=== PATIENT | male | born 1960 | race Two or more races ===

== ENCOUNTER 2019-10-10 21:25 | Inpatient (IN) | payer MEDICAID ==
[~2019-10-10] VITALS: Ht 165.1 cm; Wt 86.7 kg
[2019-10-10 10:03] VITALS: BP 161/97
--- NOTE | 2019-10-10 21:30 | NUR ---
Dr. Disla at bedside for MSE
[2019-10-10] MEDS ORDERED: IV NORMAL SALINE 1000 ML BAG IV ONE (21:45)
--- NOTE | 2019-10-10 22:08 | NUR ---
Patient taken to CT scan
[2019-10-10 22:12] LABS: BASOPHILS % (AUTO) 0.3 % (0.0-2.0); EOSINOPHILS % (AUTO) 0.2 % (0.0-7.0); HEMATOCRIT 36.7 % (36.7-47.1); HEMOGLOBIN 11.9 g/dL (12.5-16.3); LYMPHOCYTES # (AUTO) 1.1 K/uL (20.0-40.0); LYMPHOCYTES % (AUTO) 9.7 % (20.5-51.5); MEAN CORPUSCULAR HEMOGLOBIN 25.8 uug (23.8-33.4); MEAN CORPUSCULAR HGB CONC 32 g/dL (32.5-36.3); MEAN CORPUSCULAR VOLUME 79.6 fL (73.0-96.2); MONOCYTES # (AUTO) 0.5 K/uL (2.0-10.0); MONOCYTES % (AUTO) 4.9 % (0.0-11.0); NEUTROPHILS # (AUTO) 9.6 K/uL (1.8-8.9); NEUTROPHILS % (AUTO) 84.9 % (38.5-71.5); PLATELET COUNT (AUTO) 289 K/uL (152-348); RED BLOOD CELL COUNT(AUTO) 4.61 MIL/uL (4.06-5.63); WHITE BLOOD COUNT (AUTO) 11.3 K/uL (3.6-10.2)
[2019-10-10 22:17] LABS: CREATININE 1.6 mg/dL (0.6-1.3)
[2019-10-10 22:22] LABS: BILIRUBIN,DIRECT 0.3 mg/dL (0.0-0.2); BILIRUBIN,TOTAL 0.6 mg/dL (0.2-1.0); TOTAL PROTEIN, SERUM 6.7 g/dL (6.4-8.2)
--- NOTE | 2019-10-10 22:23 | NUR ---
Patient back from CT scan
[2019-10-10 22:25] LABS: *BILIRUBIN,URIN 1+ (NEGATIVE); *BLOOD, URINE 2+ (NEGATIVE); *CLARITY,URINE CLEAR (CLEAR); *COLOR,URINE YELLOW (YELLOW); *KETONES,URINE 2+ (NEGATIVE); LEUKOCYTE ESTERASE ,URINE NEGATIVE (NEGATIVE); NITRITE, URINE NEGATIVE (NEGATIVE); UGLUCOSE NEGATIVE (NEGATIVE)
[2019-10-10] MEDS ORDERED: ACETAMINOPHEN 325 MG TABLET ONE (22:38)
[2019-10-10 22:41] LABS: WBC,URINE 0-3 /HPF (0-3)
[2019-10-10 22:42] LABS: BACTERIA,URINE FEW /HPF (NONE SEEN); SQUAMOUS EPITHELIAL CELL,UR FEW /HPF (NONE SEEN)
--- NOTE | 2019-10-10 22:49 | NUR ---
Pt. admitted to Tele , under care of Dr. Singh Belongs List completed
[2019-10-10] MEDS ORDERED: AZITHROMYCIN 500MG/ D5W 250ML IVPB **ER PYXIS ONLY IV ONE (22:54)
[2019-10-10] MEDS ORDERED: CEFTRIAXONE /D5W 50ML IVPB **ER PYXIS IV ONE (22:55)
[2019-10-10] MEDS ORDERED: CEFTRIAXONE 1 G in IV DEXTROSE 5% 100 ML IV ONE (23:00)
[2019-10-10] MEDS ORDERED: AZITHROMYCIN IV 500 MG in IV DEXTROSE 5% 250 ML IV ONE (23:00)
--- NOTE | 2019-10-10 23:24 | NUR ---
Rocephin IV done infusing. No ASE noted.
--- NOTE | 2019-10-10 23:24 | NUR ---
Report given to Mendy URIOSTEGUI
[2019-10-10] MEDS ORDERED: POTASSIUM CHLORIDE 20 MEQ TAB.PRT.SR ONE (23:34)
[2019-10-11 00:05] VITALS: BP 168/101
--- NOTE | 2019-10-11 00:05 | NUR ---
NEW ADMIT 8 PATIENT RECEIVED INTO CARE VIA WHEELCHAIR. PATIENT IS ALERT/ORIENTED X3 AND HAS NO COMPLAINTS OF PAIN OR DISCOMFORT AT THIS TIME. ALL PERTINENT ASSESSMENTS AND ORIENTATION TO UNIT COMPLETED. ALL SAFETY, FALL, AND ISOLATION PRECAUTIONS IMPLEMENTED. CALL LIGHT AND PERSONAL ITEMS ARE WITHIN REACH. WILL CONTINUE TO MONITOR AND ASSESS.
--- NOTE | 2019-10-11 00:14 | NUR ---
Azithromycin IV to finish infusing in telemetry. Mendy URIOSTEGUI aware
[2019-10-11] MEDS ORDERED: POTASSIUM CHLORIDE 20 MEQ TAB.PRT.SR PO ONE (00:15)
[2019-10-11] MEDS ORDERED: ENOXAPARIN SODIUM 40 MG/0.4 ML DISP.SYRIN SQ SCH (00:15)
[2019-10-11] MEDS ORDERED: ONDANSETRON 4 MG/2 ML VIAL IV PRN (00:15)
[2019-10-11] MEDS ORDERED: ALBUTEROL SULFATE 8 GM HFA.AER.AD IH PRN (00:15)
[2019-10-11] MEDS ORDERED: ALBUTEROL SULFATE 2.5 MG/ 0.5 ML NEBU NEB PRN (00:45)
[2019-10-11 03:45] VITALS: BP 178/111
--- NOTE | 2019-10-11 03:45 | NUR ---
GARY GIL NOTIFIED THIS NURSE OF ELEVATED BP FOR PT AT 178/111 HR 119. THIS NURSE NOTIFIED PLANT PROTECTION SUPERVISOR GUS MENDOZA WHO GAVE T.O. FOR HYDRALAZINE 25MG PO Q8H FOR SBP 150mm Hg. ORDER READ BACK AND CONFIRMED. Addendum: 10/11/19 at 0436 by BARRINGTON KATE RN GARY GIL ALSO NOTIFIED THIS NURSE THAT PATIENT HAS A TEMPERATURE OF 101F. THIS NURSE IMPLEMENTED COOLING MEASURES AND PROVIDED PATIENT PRESCRIBED PO TYLENOL 650MG. WILL CONTINUE TO MONITOR AND ASSESS VS.
[2019-10-11] MEDS: ACETAMINOPHEN 325 MG TABLET PO PRN ×3 (04:16→22:19)
[2019-10-11] MEDS: hydrALAZINE HCL 25 MG TABLET PO PRN ×2 (04:16→15:44)
--- NOTE | 2019-10-11 05:16 | NUR ---
PATIENT SLEPT INTERMITTENTLY THROUGHOUT NIGHT AFTER ADMISSION TO UNIT. PATIENT HAS HAD NO COMPLAINTS OF PAIN OR DISCOMFORT, BUT IS COMPLAINING OF COUGH AND HAS BEEN NOTED TO HAVE FEVER OF 101F AND ELEVATED BP/HR. PER PATIENT, HE WAS ONCE PRESCRIBED ATENOLOL 25MG FOR HIS BLOOD PRESSURE BUT STOPPED TAKING IT 3 MONTHS AGO. PRN HYDRALAZINE 25MG PO Q8H HAS BEEN PRESCRIBED BY GUS CASTILLO FOR ELEVATED SBP 150 mm Hg, HOWEVER, THIS NURSE RECOMMENDS AN ONGOING HYPERTENSIVE MEDICATION FOR CONTROL OF PATIENT'S ELEVATED SBP/DBP AND HR. ALL SAFETY, FALL, AND ISOLATION PRECAUTIONS REMAIN IN PLACE. CALL LIGHT AND PERSONAL ITEMS REMAIN WITHIN REACH.
[2019-10-11] MEDS: PANTOPRAZOLE SODIUM 40 MG TABLET.DR PO SCH (06:02)
[2019-10-11 06:13] LABS: BASOPHILS # (AUTO) 0.1 K/uL (0.0-8.0); BASOPHILS % (AUTO) 0.5 % (0.0-2.0); EOSINOPHILS # (AUTO) 0.1 K/uL (0.0-0.7); EOSINOPHILS % (AUTO) 0.6 % (0.0-7.0); HEMATOCRIT 38.5 % (36.7-47.1); HEMOGLOBIN 12.6 g/dL (12.5-16.3); LYMPHOCYTES % (AUTO) 7.3 % (20.5-51.5); MEAN CORPUSCULAR HEMOGLOBIN 25.9 uug (23.8-33.4); MEAN CORPUSCULAR HGB CONC 33 g/dL (32.5-36.3); MEAN CORPUSCULAR VOLUME 79.4 fL (73.0-96.2); MONOCYTES # (AUTO) 0.7 K/uL (2.0-10.0); MONOCYTES % (AUTO) 5.5 % (0.0-11.0); NEUTROPHILS # (AUTO) 11.3 K/uL (1.8-8.9); NEUTROPHILS % (AUTO) 86.1 % (38.5-71.5); PLATELET COUNT (AUTO) 327 K/uL (152-348); RED BLOOD CELL COUNT(AUTO) 4.84 MIL/uL (4.06-5.63); WHITE BLOOD COUNT (AUTO) 13.1 K/uL (3.6-10.2)
[2019-10-11 06:24] VITALS: BP 142/96
--- NOTE | 2019-10-11 06:26 | NUR ---
REEVALUATION OF VS REFLECTS BP 142/96 HR 109 T 99.4. WILL CONTINUE TO MONITOR AND ASSESS.
[2019-10-11 06:35] LABS: BILIRUBIN,TOTAL 0.6 mg/dL (0.2-1.0); CREATININE 1.5 mg/dL (0.6-1.3); MAGNESIUM 1.8 mg/dL (1.8-2.4); PHOSPHOROUS 2.6 mg/dL (2.5-4.9); POTASSIUM 3.1 mmol/L (3.5-5.1)
--- NOTE | 2019-10-11 08:00 | NUR ---
Patient in bed, awake, alert and verbally responsive. On Oxygen at 2L saturating 89-90%, placed patient on 3L via nasal canula, patient saturating 92-93%. No complain of SOB at this time. Kept clean and comfortable. All needs attended and met.
[2019-10-11] MEDS: ENOXAPARIN SODIUM 40 MG/0.4 ML DISP.SYRIN SQ SCH (08:29)
[2019-10-11] MEDS: POTASSIUM CHLORIDE 50 ML IV SCH ×3 (09:46→12:19)
[2019-10-11 11:26] VITALS: BP 162/106
[2019-10-11 15:30] VITALS: BP 172/115
--- NOTE | 2019-10-11 18:18 | NUR ---
Patient in bed, awake, alert and verbally responsive. On Oxygen at 3L via nasal canula saturating 94%. No complain of pain or discomfort. patient noted with Temperature 101.9F, gave tylenol 650mg, went down to 99.4F. still awaiting for covid 19 result. All needs attended and met. kept clean and comfortable. Will endorse to Oncoming Nurse.
--- NOTE | 2019-10-11 19:10 | NUR ---
Received pt in bed, awake. Pt denies any acute distress or pain at this time. Pt noted with temperature of 103.2, was given Tylenol 650mg at 1544H. Will provide cooling measures and reassess. Covid test result still pending. Pt is on 3L NC saturating at 96%. RFA IV is intact. Safety measures in place. Bed low and locked in position. Call light within reach, will continue with the plan of care.
[2019-10-11] MEDS: CEFTRIAXONE 1 G in IV DEXTROSE 5% 50 ML IV SCH (20:28)
[2019-10-11 20:35] VITALS: BP 177/108
[2019-10-11] MEDS: AZITHROMYCIN IV 500 MG in IV DEXTROSE 5% 250 ML IV SCH (21:17)
[2019-10-11] MEDS: MORPHINE SULFATE 2 MG/1 ML DISP.SYRIN IV PRN (21:17)
[2019-10-12 00:49] VITALS: BP 131/92
[2019-10-12 05:33] VITALS: BP 151/114
[2019-10-12] MEDS: ACETAMINOPHEN 325 MG TABLET PO PRN ×3 (05:57→20:32)
[2019-10-12] MEDS: hydrALAZINE HCL 25 MG TABLET PO PRN (05:57)
--- NOTE | 2019-10-12 06:47 | NUR ---
Pt slept intermittently through the night. Pt awake and denies any acute distress or pain at this time. Pts temperature is 101.1, Tylenol 650mg was given. Will reassess. BP was 151/114, PRN Hydralazine 25mg was given. Pt is ST 119 on tele monitor. Comfort care and needs attended. Safety measures in place. Call light within reach. Will endorse to the oncoming nurse accordingly.
[2019-10-12] MEDS: PANTOPRAZOLE SODIUM 40 MG TABLET.DR PO SCH (06:59)
[2019-10-12 07:43] LABS: BASOPHILS % (AUTO) 0.3 % (0.0-2.0); EOSINOPHILS # (AUTO) 0.2 K/uL (0.0-0.7); EOSINOPHILS % (AUTO) 1.3 % (0.0-7.0); HEMATOCRIT 36.6 % (36.7-47.1); LYMPHOCYTES # (AUTO) 1.1 K/uL (20.0-40.0); MEAN CORPUSCULAR HEMOGLOBIN 26.3 uug (23.8-33.4); MEAN CORPUSCULAR HGB CONC 33 g/dL (32.5-36.3); MEAN CORPUSCULAR VOLUME 80.4 fL (73.0-96.2); MONOCYTES # (AUTO) 0.6 K/uL (2.0-10.0); MONOCYTES % (AUTO) 4.7 % (0.0-11.0); NEUTROPHILS # (AUTO) 11.6 K/uL (1.8-8.9); NEUTROPHILS % (AUTO) 85.7 % (38.5-71.5); PLATELET COUNT (AUTO) 323 K/uL (152-348); RED BLOOD CELL COUNT(AUTO) 4.55 MIL/uL (4.06-5.63); WHITE BLOOD COUNT (AUTO) 13.5 K/uL (3.6-10.2)
[2019-10-12 07:45] LABS: CREATININE 1.1 mg/dL (0.6-1.3); POTASSIUM 3.1 mmol/L (3.5-5.1)
[2019-10-12 07:59] LABS: THYROID STIMULATING HORMONE 0.081 mIU/mL (0.358-3.740)
[2019-10-12 08:00] VITALS: BP 137/88
[2019-10-12 08:15] LABS: MAGNESIUM 1.7 mg/dL (1.8-2.4)
[2019-10-12] MEDS: ENOXAPARIN SODIUM 40 MG/0.4 ML DISP.SYRIN SQ SCH (08:15)
--- NOTE | 2019-10-12 08:53 | NUR ---
Received pt. AAOX4. vitals signs stable fever in the 100's see vital signs documentation. Hl RFA patent; no c/of pain.
[2019-10-12] MEDS ORDERED: POTASSIUM CHLORIDE 20 MEQ TAB.PRT.SR PO ONE (11:15)
[2019-10-12 11:30] VITALS: BP 133/91
[2019-10-12] MEDS: MAGNESIUM SULFATE/D5W 100 ML IV SCH ×2 (11:57→13:24)
[2019-10-12] MEDS: MORPHINE SULFATE 2 MG/1 ML DISP.SYRIN IV PRN (14:11)
[2019-10-12 16:00] VITALS: BP 156/93
--- NOTE | 2019-10-12 18:40 | NUR ---
Patient left resting AAOx4. on 3 liter NC saturation within desire limits, sbp wnl with no need of anti-hypertensive prn's. tolerating diet well with no n/v.
--- NOTE | 2019-10-12 19:00 | NUR ---
Received pt in bed, awake. Pt denies SOB/CP or any acute distress at this time. Pt's temperature is noted to be at 99.4, will give cooling measures and PRN Tylenol 650mg, will reassess. Pt is ST 105 on tele monitor. V/S stable, on 3L NC saturating at 97%. RFA 20 is intact. Safety measures in place. Call light within reach. Will continue with the plan of care.
[2019-10-12 20:00] VITALS: BP 140/88
[2019-10-12] MEDS: CEFTRIAXONE 1 G in IV DEXTROSE 5% 50 ML IV SCH (20:30)
[2019-10-12] MEDS: AZITHROMYCIN IV 500 MG in IV DEXTROSE 5% 250 ML IV SCH (21:49)
[2019-10-13 00:30] VITALS: BP 134/82
[2019-10-13 04:30] VITALS: BP 163/102
[2019-10-13] MEDS: ACETAMINOPHEN 325 MG TABLET PO PRN ×2 (05:14→17:49)
[2019-10-13] MEDS: hydrALAZINE HCL 25 MG TABLET PO PRN (05:15)
[2019-10-13] MEDS: PANTOPRAZOLE SODIUM 40 MG TABLET.DR PO SCH (06:17)
--- NOTE | 2019-10-13 06:32 | NUR ---
Pt slept intermittently through the night. Pt awake and denies any acute distress or pain. Pt temperature is noted to be at 100.7, Tylenol 650mg was given. ST 110 on tele monitor. BP is 163/102, PRN Hydralazine 25mg was given. Will reassess. Comfort care and needs attended. Fall precaution maintained. Safety measures in place. Call light within reach. Will endorse to the oncoming nurse accordingly.
--- NOTE | 2019-10-13 08:00 | NUR ---
Pt alert and oriented x 4. Educated pt on how to use IS. Pt able to return demonstrate proper use. Encouraged pt to us IS x10WA and discussed importance of exercise benefits with his lung. Pt agreeable Plan on using IS. Pt is in no acute distress. Pt states that his breathing better. No fever noted. Call light is within reach.
[2019-10-13 08:22] LABS: BASOPHILS % (AUTO) 0.3 % (0.0-2.0); EOSINOPHILS # (AUTO) 0.4 K/uL (0.0-0.7); EOSINOPHILS % (AUTO) 2.6 % (0.0-7.0); HEMATOCRIT 35.5 % (36.7-47.1); HEMOGLOBIN 11.5 g/dL (12.5-16.3); LYMPHOCYTES # (AUTO) 1.4 K/uL (20.0-40.0); LYMPHOCYTES % (AUTO) 10.7 % (20.5-51.5); MEAN CORPUSCULAR HEMOGLOBIN 26.1 uug (23.8-33.4); MEAN CORPUSCULAR HGB CONC 33 g/dL (32.5-36.3); MEAN CORPUSCULAR VOLUME 80.3 fL (73.0-96.2); MONOCYTES # (AUTO) 0.5 K/uL (2.0-10.0); MONOCYTES % (AUTO) 3.5 % (0.0-11.0); NEUTROPHILS % (AUTO) 82.9 % (38.5-71.5); PLATELET COUNT (AUTO) 354 K/uL (152-348); RED BLOOD CELL COUNT(AUTO) 4.42 MIL/uL (4.06-5.63); WHITE BLOOD COUNT (AUTO) 13.3 K/uL (3.6-10.2)
[2019-10-13] MEDS: ENOXAPARIN SODIUM 40 MG/0.4 ML DISP.SYRIN SQ SCH (08:25)
[2019-10-13 09:08] LABS: BILIRUBIN,TOTAL 0.9 mg/dL (0.2-1.0); CREATININE 1.2 mg/dL (0.6-1.3); PHOSPHOROUS 3.2 mg/dL (2.5-4.9); POTASSIUM 3.1 mmol/L (3.5-5.1); TOTAL PROTEIN, SERUM 7.3 g/dL (6.4-8.2)
[2019-10-13 11:16] VITALS: BP 117/80
[2019-10-13] MEDS ORDERED: POTASSIUM CHLORIDE 20 MEQ TAB.PRT.SR PO ONE (14:00)
--- NOTE | 2019-10-13 14:00 | NUR ---
Pt's K 3.1 new order received for KCL 40 mEq PO.
[2019-10-13 15:50] VITALS: BP 146/97
--- NOTE | 2019-10-13 16:56 | NUR ---
Per hospitalist DR Méndez to see pt for resp consult.
--- NOTE | 2019-10-13 17:50 | NUR ---
pt c/o JOSE. TYlenol given. Pt has been afibrile throughout shift. Pt has consistent coughin noted. Pt using IS as planned. Pt denies any c/o pain.
--- NOTE | 2019-10-13 17:51 | NUR ---
Sputum sent to lab
--- NOTE | 2019-10-13 19:45 | NUR ---
Received patient awake and alert. Patient shows no signs or symptoms of distress at this time. Temperature 100.1. Cooling measures applied. Denies having any chest pain or shortness of breath at this time. Sinus tachycardia on tele monitor. 98% O2 saturation with 3L NC. Bed set to lowest position. Call light within reach. Side rails X2 are up. Will continue to monitor patient.
[2019-10-13 20:03] VITALS: BP 136/76
[2019-10-13] MEDS: CEFTRIAXONE 1 G in IV DEXTROSE 5% 50 ML IV SCH (20:41)
[2019-10-13] MEDS: AZITHROMYCIN IV 500 MG in IV DEXTROSE 5% 250 ML IV SCH (21:45)
[2019-10-14] VITALS (8 sets, daily range): BP systolic 135–174; BP diastolic 92–109
[2019-10-14] MEDS: hydrALAZINE HCL 25 MG TABLET PO PRN (00:03)
[2019-10-14] MEDS: ACETAMINOPHEN 325 MG TABLET PO PRN ×2 (00:03→06:06)
--- NOTE | 2019-10-14 00:07 | NUR ---
Blood pressure rechecked and is 170/102 Hr-110. Patient also has 100.5 temperature at this time. PRN Hydralazine and Tylenol given as per Md order. Will reassess vital signs.
--- NOTE | 2019-10-14 01:48 | NUR ---
Blood pressure rechecked and is 138/94. Temperature rechecked and now is 101.1. Pt reports feeling better after taking Tylenol. Cooling measures reapplied. Will continue to monitor patient.
[2019-10-14] MEDS: PANTOPRAZOLE SODIUM 40 MG TABLET.DR PO SCH (06:06)
[2019-10-14 06:35] LABS: BASOPHILS % (AUTO) 0.3 % (0.0-2.0); EOSINOPHILS # (AUTO) 0.4 K/uL (0.0-0.7); EOSINOPHILS % (AUTO) 2.6 % (0.0-7.0); HEMATOCRIT 34.4 % (36.7-47.1); HEMOGLOBIN 11.4 g/dL (12.5-16.3); LYMPHOCYTES # (AUTO) 1.4 K/uL (20.0-40.0); LYMPHOCYTES % (AUTO) 10.2 % (20.5-51.5); MEAN CORPUSCULAR HEMOGLOBIN 26.5 uug (23.8-33.4); MEAN CORPUSCULAR HGB CONC 33 g/dL (32.5-36.3); MEAN CORPUSCULAR VOLUME 80.3 fL (73.0-96.2); MONOCYTES # (AUTO) 0.7 K/uL (2.0-10.0); MONOCYTES % (AUTO) 4.8 % (0.0-11.0); NEUTROPHILS # (AUTO) 11.1 K/uL (1.8-8.9); NEUTROPHILS % (AUTO) 82.1 % (38.5-71.5); PLATELET COUNT (AUTO) 444 K/uL (152-348); RED BLOOD CELL COUNT(AUTO) 4.28 MIL/uL (4.06-5.63); WHITE BLOOD COUNT (AUTO) 13.5 K/uL (3.6-10.2)
--- NOTE | 2019-10-14 06:36 | NUR ---
Temperature 100.2 and blood pressure 159/103. Patient shows no signs or symptoms of distress at this time. Sinus Tachycardia on Tele monitor at this time. Tylenol given and cooling measures reapplied. Will endorse patient to day shift nurse.
[2019-10-14 06:51] LABS: CREATININE 1.1 mg/dL (0.6-1.3); MAGNESIUM 1.9 mg/dL (1.8-2.4); PHOSPHOROUS 3.7 mg/dL (2.5-4.9); POTASSIUM 3.4 mmol/L (3.5-5.1)
--- NOTE | 2019-10-14 08:30 | NUR ---
Received pt in bed awake AOx4, on O2 @ 2L with no SOB or distress noted at this time. Pt stated that he feels a lot better and is comfortable at the moment. On tele SR, denied chest pain. BP down to 130/100 and temp 98.7. IV on right FA 20g flushed and patent. Bed locked in lowest position with siderails 2x up. Call light and phone within reach. Will monitor
[2019-10-14] MEDS: ENOXAPARIN SODIUM 40 MG/0.4 ML DISP.SYRIN SQ SCH (08:55)
[2019-10-14] MEDS ORDERED: POTASSIUM CHLORIDE 20 MEQ TAB.PRT.SR PO ONE (09:00)
[2019-10-14] MEDS ORDERED: DEXAMETHASONE SOD PHOSPHATE 10 MG INJ IV SCH (09:00)
--- NOTE | 2019-10-14 09:00 | NUR ---
Dr. Méndez talked to patient regarding Remdesivir and Plasma, pt agreed and Dr. Méndez wants it suggested to ID. Gave patient information about Remdesivir.
[2019-10-14] MEDS: DEXAMETHASONE SOD PHOSPHATE 4 MG INJ IV SCH (09:49)
[2019-10-14 11:56] LABS: BAND % (MANUAL) 2 % (0-10); EOSINOPHILS % (MANUAL) 2 % (0-8); LYMPHOCYTES % (MANUAL) 18 % (20-40); NEUTROPHILS % (MANUAL) 78 % (42-75)
[2019-10-14] MEDS ORDERED: REMDESIVIR (INVESTIGATIONAL) 200 MG in IV NORMAL SALINE 210 ML IV ONE ×2 (16:30→19:30)
--- NOTE | 2019-10-14 19:00 | NUR ---
Patient alert oriented, no sob no chest pain, no complain of pain. Patient v/s stable, with episode of non productive cough, afebrile, cont on droplet precautions, cont to monitor.
--- NOTE | 2019-10-14 19:05 | NUR ---
Remdesivir not given since pharmacy has not sent medication up yet, awaiting INR results. Convalescent plasma consent signed. Convalescent papers faxed to pharmacy. Pt stable, on O2 @ 2L but removes it from time to time, no SOB or distress. Incentive spirometer used and at bedside, pt using it. No other complaints at this time
[2019-10-14] MEDS: CEFTRIAXONE 1 G in IV DEXTROSE 5% 50 ML IV SCH (21:29)
[2019-10-14] MEDS: AZITHROMYCIN IV 500 MG in IV DEXTROSE 5% 250 ML IV SCH (21:45)
[2019-10-15] VITALS (9 sets, daily range): BP systolic 134–163; BP diastolic 92–110
[2019-10-15] MEDS: hydrALAZINE HCL 25 MG TABLET PO PRN ×2 (04:22→17:04)
--- NOTE | 2019-10-15 04:25 | NUR ---
Patient alert oriented no sob no chest pain, no complain of pain. Patient has elevated BP 163/110 given apresoline 25mg po as ordered for elevated bp. Patient has no headaches, no n/v asymptomatic, cont to monitor.
[2019-10-15] MEDS: PANTOPRAZOLE SODIUM 40 MG TABLET.DR PO SCH (06:01)
--- NOTE | 2019-10-15 06:53 | NUR ---
Patient alert oriented, no sob no chest pain, no complain of pain BP stable 134/92, no complain of headaches no nausea no vomiting asymptomatic, BP meds effective. Patient remain on droplet precaution, cont to monitor.
[2019-10-15 06:55] LABS: BASOPHILS % (AUTO) 0.3 % (0.0-2.0); EOSINOPHILS % (AUTO) 0.1 % (0.0-7.0); HEMATOCRIT 36.9 % (36.7-47.1); HEMOGLOBIN 12.1 g/dL (12.5-16.3); LYMPHOCYTES # (AUTO) 1.6 K/uL (20.0-40.0); LYMPHOCYTES % (AUTO) 10.5 % (20.5-51.5); MEAN CORPUSCULAR HEMOGLOBIN 26.4 uug (23.8-33.4); MEAN CORPUSCULAR HGB CONC 33 g/dL (32.5-36.3); MEAN CORPUSCULAR VOLUME 80.4 fL (73.0-96.2); MONOCYTES # (AUTO) 0.5 K/uL (2.0-10.0); MONOCYTES % (AUTO) 3.5 % (0.0-11.0); NEUTROPHILS # (AUTO) 13.3 K/uL (1.8-8.9); NEUTROPHILS % (AUTO) 85.6 % (38.5-71.5); PLATELET COUNT (AUTO) 552 K/uL (152-348); RED BLOOD CELL COUNT(AUTO) 4.59 MIL/uL (4.06-5.63); WHITE BLOOD COUNT (AUTO) 15.6 K/uL (3.6-10.2)
[2019-10-15 07:24] LABS: BILIRUBIN,DIRECT 0.2 mg/dL (0.0-0.2); BILIRUBIN,TOTAL 0.3 mg/dL (0.2-1.0); TOTAL PROTEIN, SERUM 7.1 g/dL (6.4-8.2)
--- NOTE | 2019-10-15 07:30 | NUR ---
RECEIVED PT IN BED, AWAKE, ALERT AND ORIENTED X3. MOVES ALL EXTREMETIES WELL. COLOR IS GOOD. AFEBRILE. DENIES ANY DISCOMFORTS. AMBULATORY TO THE BR. NO C/O SOB NOTED.
[2019-10-15 07:31] LABS: CREATININE 1.2 mg/dL (0.6-1.3); PHOSPHOROUS 4.7 mg/dL (2.5-4.9); POTASSIUM 3.7 mmol/L (3.5-5.1)
--- NOTE | 2019-10-15 08:30 | NUR ---
SEEN AND EXAMINED BY DR GOMEZ AND DR ROCHE WITH NEW ORDERS.
[2019-10-15] MEDS: DEXAMETHASONE SOD PHOSPHATE 4 MG INJ IV SCH (09:07)
[2019-10-15] MEDS: ENOXAPARIN SODIUM 40 MG/0.4 ML DISP.SYRIN SQ SCH (09:10)
--- NOTE | 2019-10-15 10:30 | NUR ---
SEEN BY SURI CRABTREE WITH NEW ORDER TO GIVE 1 UNIT OF CONVALESCENT PLASMA TRANSFUSION. BLOOD TRANSFUSION CONSENT HAS BEEN SIGNED. CALLED UP BLOOD BANK REGARDING THE ORDER.
--- NOTE | 2019-10-15 15:40 | NUR ---
CONVALESCENT PLASMA ISSUED BY [facility] FIEL[facility]. UNABLE TO SCAN THE PRODUCT NUMBER. CALLED LAB BACK AND FORTH AND SPOKEN WITH GT, UNABLE TO OVERRIDE. REFERRED THE MATTER TO CHARGE NURSE AND DIRECTOR OF [facility]. INSTRUCTED TO USE A DOWNTIME PAPER FORM FOR BLOOD TRANSFUSION.
--- NOTE | 2019-10-15 15:53 | NUR ---
[employer] Professor Consultation: 3:30pm: SW completed a school social worker consultation via ZOOM. Patient is a 58 year old male, alert, oriented, receptive to meeting with this SW. Patient came to the ED, and subsequently was admitted to the hospital, due to cough and fever, and tested positive for COVID-19. Patient is independent with his ADL's. Patient reports that he does not have a permanent job, and was doing "little jobs here and there" and getting paid m[employer], however has not been working since the start of the pandemic in April. Patient does not receive unemployment or any other sort of income. Patient stated that he was temporarily living with his brother. The brother's household also consist of his elderly mother and the brother's [id number]. Patient reported that on August 22, he moved out of his brother's home and rented a room for 1 month. On September 22, a friend offered for him to stay with her, but after staying there for a few days, the friend became ill and he began to live in his car, only using the friend's home for showering and personal care. Patient states that at this time, he does not have a room or a home to return to. Community resources explored, and this SW will look into whether the patient qualifies for [facility]. Patient reported no history of drug or alcohol use, patient reported he does not smoke. Patient reported no SI or HI. Patient also stated that he has not been seen by a doctor for nearly 5 years, and does not take any medications, except he used to take medication for HTN but was inconsistent. Patient maintained appropriate eye contact throughout this interview, speech was clear, thought process and thought content were appropriate. SW to attempt a referral to [facility] and inform patient about the outcome of the referral.
--- NOTE | 2019-10-15 16:20 | NUR ---
This SW spoke with PRABHU Love to discuss patient's case and discharge plans. Given patient's current COVID-19 positive status, along with his lack of permanent housing, this SW and PRABHU Love discussed referring patient to Quarantine and Isolation Intake Call Center upon discharge. If patient's COVID-19 status changes, alternate housing options such as [facility] will be considered.
--- NOTE | 2019-10-15 16:25 | NUR ---
UNABLE TO REACH GT. BLOOD HAS LAPSED MORE THAN 30 MIN. , RETURNED BLOOD BACK TO THE BLOOD BANK AND GIVEN TO NATY.
--- NOTE | 2019-10-15 17:27 | NUR ---
BLOOD CONVALESCENT PLASMA IS REISSUED AND BROUGHT UP BY [facility] FIELDS ON THE FLOOR. COSIGNED WITH THE CHANGE OF TIME ISSUE. UNABLE TO SCAN STILL, ADVICED TO USE THE BLOOD TRANSFUSION FORM.
--- NOTE | 2019-10-15 17:40 | NUR ---
BLOOD TRANSFUSION STARTED ON THE RIGHT FA WITH ANOTHER NURSE TO DOUBLE CHECK AND CO SIGN AND USING THE BLOOD TRANSFUSION FORM.
--- NOTE | 2019-10-15 18:00 | NUR ---
NO BLOOD TRANSFUSION REACTION NOTED. TEMP 98.1F. TOLERATING WELL. BP-136/94, HR -105. O2 SAT 93% ON RA.
--- NOTE | 2019-10-15 19:30 | NUR ---
patient received at beginning of shift. talking on the phone and resting comfortably. denies any pain or SOB. v/s stable. no s/s of acute distress noted. on 2 L NC. running convalescent therapy started by morning shift. will continue to monitor and assess for any rxn.
[2019-10-15] MEDS: REMDESIVIR (INVESTIGATIONAL) 100 MG in IV NORMAL SALINE 230 ML IV SCH (20:27)
--- NOTE | 2019-10-15 20:30 | NUR ---
convalescent therapy completed and no acute reactions noted. v/s stable. no s/s of acute distress noted. blood transfusion record received and completed, placed in patients chart. patient is resting comfortably talking on the phone and laughing. drink provided. will continue to monitor and administer remdesivir.
--- NOTE | 2019-10-15 21:27 | NUR ---
remdesivir administer completed without any reaction and changes in blood pressure. bp remained consistent and recorded in patient v/s documentation. patient denies any pain, SOB, or dizziness. will continue to monitor and assess throughout the night. Addendum: 10/16/19 at 0127 by CIRILO VIEIRA RN unable to record patient first v/s before starting remdesivir. [facility] ([place]) will not allow RN to record. starting BP before administration of remdesivir 149/95.
[2019-10-15] MEDS: CEFTRIAXONE 1 G in IV DEXTROSE 5% 50 ML IV SCH (21:42)
[2019-10-16] VITALS (9 sets, daily range): BP systolic 141–162; BP diastolic 68–110
[2019-10-16] MEDS: PANTOPRAZOLE SODIUM 40 MG TABLET.DR PO SCH (06:04)
--- NOTE | 2019-10-16 06:30 | NUR ---
pharmacy hydralazine pulled from [facility] to administer due to BP over 150. When rechecked to administer BP <150. returned to [facility].
--- NOTE | 2019-10-16 07:00 | NUR ---
patient resting comfortably at this time. will continue to monitor and reassess.
[2019-10-16 07:27] LABS: BASOPHILS # (AUTO) 0.2 K/uL (0.0-8.0); BASOPHILS % (AUTO) 1.3 % (0.0-2.0); EOSINOPHILS # (AUTO) 0.1 K/uL (0.0-0.7); EOSINOPHILS % (AUTO) 0.5 % (0.0-7.0); HEMATOCRIT 36.2 % (36.7-47.1); HEMOGLOBIN 11.8 g/dL (12.5-16.3); LYMPHOCYTES # (AUTO) 2.6 K/uL (20.0-40.0); LYMPHOCYTES % (AUTO) 15.3 % (20.5-51.5); MEAN CORPUSCULAR HEMOGLOBIN 26.3 uug (23.8-33.4); MEAN CORPUSCULAR HGB CONC 33 g/dL (32.5-36.3); MEAN CORPUSCULAR VOLUME 80.3 fL (73.0-96.2); MONOCYTES % (AUTO) 5.9 % (0.0-11.0); NEUTROPHILS # (AUTO) 13.1 K/uL (1.8-8.9); PLATELET COUNT (AUTO) 675 K/uL (152-348); RED BLOOD CELL COUNT(AUTO) 4.51 MIL/uL (4.06-5.63)
[2019-10-16 07:33] LABS: CREATININE 1.3 mg/dL (0.6-1.3)
[2019-10-16 07:46] LABS: BILIRUBIN,DIRECT 0.1 mg/dL (0.0-0.2); BILIRUBIN,TOTAL 0.3 mg/dL (0.2-1.0); TOTAL PROTEIN, SERUM 7.1 g/dL (6.4-8.2)
--- NOTE | 2019-10-16 08:00 | NUR ---
received pt. resting in bed alert oriented x4. pt. denies pain / discomfort. pt. denies sob/ difficulty breathing. pt on 2 L NC saturating 96%. Pt is afebrile has some coughing. Pt. states he feels great. Educated pt. on proning and incentive spirometer. IV in R forearm 22 gauge intact patent saline lock. safety measures in place. call light within reach. will continue to monitor pt.
[2019-10-16] MEDS: DEXAMETHASONE SOD PHOSPHATE 4 MG INJ IV SCH (08:47)
[2019-10-16] MEDS: ENOXAPARIN SODIUM 40 MG/0.4 ML DISP.SYRIN SQ SCH (08:48)
--- NOTE | 2019-10-16 18:51 | NUR ---
pt. resting comfortably in bed. pt. denies sob/ difficulty breathing. pt. on 2 L NC saturating 94%. educated pt. on importance of incentive spirometer and proning. pt. in stable condition. will endorse to PM RN
--- NOTE | 2019-10-16 19:30 | NUR ---
RECEIVED PT AWAKE,ALERT AND ORIENTEDX4. PT IN NO ACUTE DISTRESS. IV INTACT. PT HAS INTERMITTENT COUGH. SAFETY AND COMFORT PROVIDED. ALL NEEDS ARE MET. WILL CONTINUE TO MONITOR.
[2019-10-16] MEDS: REMDESIVIR (INVESTIGATIONAL) 100 MG in IV NORMAL SALINE 230 ML IV SCH (20:48)
[2019-10-16] MEDS: ACETAMINOPHEN 325 MG TABLET PO PRN (20:50)
[2019-10-16] MEDS: hydrALAZINE HCL 25 MG TABLET PO PRN (22:02)
[2019-10-17 04:18] VITALS: BP 161/106
[2019-10-17] MEDS: ACETAMINOPHEN 325 MG TABLET PO PRN (05:19)
[2019-10-17] MEDS: hydrALAZINE HCL 25 MG TABLET PO PRN ×3 (05:19→21:48)
[2019-10-17] MEDS: PANTOPRAZOLE SODIUM 40 MG TABLET.DR PO SCH (06:04)
--- NOTE | 2019-10-17 06:23 | NUR ---
PT TRANSFERRED TO [facility] . PT SLEPT INTERMITTENTLY. PRESCRIBED MEDICATION GIVEN AND PT TOLERATED IT WELL. PT GIVEN APRESOLINE AT 2202H AND 0519H PRN FOR BP >160. AFTER AN HOUR PT BP WENT DOWN. MEDICATION EFFECTIVE. PT GIVEN ALSO TYLENOL AT 0H AND 0519H FOR PAIN WHEN COUGHING PER PT.PT TOLERATED IT WELL. SAFETY AND COMFORT PROVIDED. ALL NEEDS ARE MET. WILL ENDORSE TO INCOMING NURSE FOR CONTINUITY OF CARE.
[2019-10-17 07:00] LABS: BASOPHILS # (AUTO) 0.1 K/uL (0.0-8.0); BASOPHILS % (AUTO) 1.1 % (0.0-2.0); EOSINOPHILS % (AUTO) 0.5 % (0.0-7.0); HEMATOCRIT 35.4 % (36.7-47.1); HEMOGLOBIN 11.4 g/dL (12.5-16.3); LYMPHOCYTES # (AUTO) 1.8 K/uL (20.0-40.0); LYMPHOCYTES % (AUTO) 17.5 % (20.5-51.5); MEAN CORPUSCULAR HEMOGLOBIN 26.3 uug (23.8-33.4); MEAN CORPUSCULAR HGB CONC 32 g/dL (32.5-36.3); MEAN CORPUSCULAR VOLUME 81.5 fL (73.0-96.2); MONOCYTES # (AUTO) 0.7 K/uL (2.0-10.0); MONOCYTES % (AUTO) 6.4 % (0.0-11.0); NEUTROPHILS # (AUTO) 7.6 K/uL (1.8-8.9); NEUTROPHILS % (AUTO) 74.5 % (38.5-71.5); PLATELET COUNT (AUTO) 563 K/uL (152-348); RED BLOOD CELL COUNT(AUTO) 4.34 MIL/uL (4.06-5.63); WHITE BLOOD COUNT (AUTO) 10.2 K/uL (3.6-10.2)
[2019-10-17 07:08] LABS: BILIRUBIN,DIRECT 0.1 mg/dL (0.0-0.2); BILIRUBIN,TOTAL 0.2 mg/dL (0.2-1.0); TOTAL PROTEIN, SERUM 6.6 g/dL (6.4-8.2)
[2019-10-17 07:29] LABS: CREATININE 1.2 mg/dL (0.6-1.3); MAGNESIUM 1.9 mg/dL (1.8-2.4); PHOSPHOROUS 4.8 mg/dL (2.5-4.9); POTASSIUM 4.2 mmol/L (3.5-5.1)
--- NOTE | 2019-10-17 08:00 | NUR ---
Patient in bed, awake, alert and verbally responsive. No signs of distress noted. On Oxygen at 2L via nasal canula, saturating 96%. No complain of pain or discomfort. Remains on Isolation for Covid +, proper PPE strictly Observed . Will continue to monitor.
[2019-10-17] MEDS: DEXAMETHASONE SOD PHOSPHATE 4 MG INJ IV SCH (08:15)
[2019-10-17] MEDS: ENOXAPARIN SODIUM 40 MG/0.4 ML DISP.SYRIN SQ SCH (08:16)
[2019-10-17 11:32] VITALS: BP 151/105
[2019-10-17 15:20] VITALS: BP 150/104
--- NOTE | 2019-10-17 18:24 | NUR ---
Patient is awake, alert and verbally responsive. No signs of distress noted. No SOB. Afebrile. No complain of pain or discomfort. All needs attended and met. Will endorse to Oncoming Nurse.
--- NOTE | 2019-10-17 19:10 | NUR ---
Received pt in bed, awake. Pt denies any acute distress or pain. V/S stable on 2L NC. RFA IV is intact. Safety measures in place. Personal belongings and call light within reach. Will continue with the plan of care.
[2019-10-17] MEDS: REMDESIVIR (INVESTIGATIONAL) 100 MG in IV NORMAL SALINE 230 ML IV SCH (20:00)
[2019-10-18] MEDS: PANTOPRAZOLE SODIUM 40 MG TABLET.DR PO SCH (06:00)
[2019-10-18] MEDS: hydrALAZINE HCL 25 MG TABLET PO PRN ×2 (06:00→20:38)
--- NOTE | 2019-10-18 06:32 | NUR ---
Pt slept through the night. Pt awake and denies any acute distress or pain. Hydralazine 25mgx2 was given through the shift current BP is 165/115. Pt is afebrile. Comfort care and needs attended. Safety measures in place. Call light within reach. Will endorse to the oncoming nurse accordingly.
--- NOTE | 2019-10-18 07:30 | NUR ---
patient in bed, awake, alert and verbally responsive. On Oxygen at 2L via nasal canula, saturating 96%. No SOB noted. Afebrile. No complain of Pain or discomfort. Proper PPE strictly Observed for covid19 +, kept clean and comfortable. Will continue to monitor.
[2019-10-18 07:46] LABS: BASOPHILS % (AUTO) 0.1 % (0.0-2.0); EOSINOPHILS # (AUTO) 0.4 K/uL (0.0-0.7); EOSINOPHILS % (AUTO) 2.6 % (0.0-7.0); HEMATOCRIT 36.9 % (36.7-47.1); HEMOGLOBIN 12.2 g/dL (12.5-16.3); LYMPHOCYTES # (AUTO) 3.7 K/uL (20.0-40.0); MEAN CORPUSCULAR HEMOGLOBIN 26.9 uug (23.8-33.4); MEAN CORPUSCULAR HGB CONC 33 g/dL (32.5-36.3); MEAN CORPUSCULAR VOLUME 81.6 fL (73.0-96.2); MONOCYTES # (AUTO) 1.1 K/uL (2.0-10.0); MONOCYTES % (AUTO) 7.8 % (0.0-11.0); NEUTROPHILS # (AUTO) 9.1 K/uL (1.8-8.9); NEUTROPHILS % (AUTO) 63.5 % (38.5-71.5); PLATELET COUNT (AUTO) 581 K/uL (152-348); RED BLOOD CELL COUNT(AUTO) 4.52 MIL/uL (4.06-5.63); WHITE BLOOD COUNT (AUTO) 14.3 K/uL (3.6-10.2)
[2019-10-18 07:55] LABS: CREATININE 1.1 mg/dL (0.6-1.3); POTASSIUM 4.2 mmol/L (3.5-5.1)
[2019-10-18 07:59] LABS: BILIRUBIN,DIRECT 0.1 mg/dL (0.0-0.2); BILIRUBIN,TOTAL 0.3 mg/dL (0.2-1.0); TOTAL PROTEIN, SERUM 6.7 g/dL (6.4-8.2)
[2019-10-18] MEDS: ENOXAPARIN SODIUM 40 MG/0.4 ML DISP.SYRIN SQ SCH (08:20)
[2019-10-18] MEDS: DEXAMETHASONE SOD PHOSPHATE 4 MG INJ IV SCH (08:20)
--- NOTE | 2019-10-18 09:00 | NUR ---
Placed patient on Room Air, saturating 92-93%. Will continue to monitor.
[2019-10-18 11:33] VITALS: BP 140/87
[2019-10-18 15:26] VITALS: BP 134/92
--- NOTE | 2019-10-18 17:04 | NUR ---
Patient is awake, alert and verbally responsive. No signs of distress noted. No SOB. On Room Air saturating 92-95%. No complain of pain or discomfort. kept clean and comfortable. kept the call light within easy reach. Will endorse to Oncoming Nurse.
--- NOTE | 2019-10-18 19:15 | NUR ---
Received patient awake verbally responsive, denies chest pain or any discomfort at this time, no s/s of distress in room air saturating at 95 %.Ambulates in steady gait.Heplock on Right forearm 22g intact no s/s of infiltration.IV medication as prescribed ordered given tolerated well. Continue on isolation for covid+.Call light with in reach.Will continue to monitor.
[2019-10-18] MEDS: REMDESIVIR (INVESTIGATIONAL) 100 MG in IV NORMAL SALINE 230 ML IV SCH (19:58)
[2019-10-18 20:35] VITALS: BP 149/103
[2019-10-19] MEDS: hydrALAZINE HCL 25 MG TABLET PO PRN (04:03)
[2019-10-19 05:57] VITALS: BP 134/88
[2019-10-19] MEDS: PANTOPRAZOLE SODIUM 40 MG TABLET.DR PO SCH (06:02)
--- NOTE | 2019-10-19 06:22 | NUR ---
Patient slept intermittently no respiratory distress noted ,compliant with medications.BP noted >150 .Denies headache. no n/v. Hydralazine 25 mg given.Medication effective .Heplock remain intact on Right FA.Call light with in reach.Continue on Isolation precaution.Will endorse to oncoming nurse.
[2019-10-19 06:49] LABS: BASOPHILS # (AUTO) 0.2 K/uL (0.0-8.0); BASOPHILS % (AUTO) 1.6 % (0.0-2.0); EOSINOPHILS # (AUTO) 0.3 K/uL (0.0-0.7); EOSINOPHILS % (AUTO) 2.3 % (0.0-7.0); HEMATOCRIT 37.2 % (36.7-47.1); HEMOGLOBIN 12.1 g/dL (12.5-16.3); LYMPHOCYTES # (AUTO) 3.6 K/uL (20.0-40.0); LYMPHOCYTES % (AUTO) 24.4 % (20.5-51.5); MEAN CORPUSCULAR HEMOGLOBIN 26.3 uug (23.8-33.4); MEAN CORPUSCULAR HGB CONC 33 g/dL (32.5-36.3); MEAN CORPUSCULAR VOLUME 80.9 fL (73.0-96.2); MONOCYTES % (AUTO) 6.9 % (0.0-11.0); NEUTROPHILS # (AUTO) 9.4 K/uL (1.8-8.9); NEUTROPHILS % (AUTO) 64.8 % (38.5-71.5); PLATELET COUNT (AUTO) 633 K/uL (152-348); WHITE BLOOD COUNT (AUTO) 14.6 K/uL (3.6-10.2)
--- NOTE | 2019-10-19 07:15 | NUR ---
Received patient in bed, No signs of distres noted. No SOB. saturating 96% on Room Air. No complain of Pain or discomforts. Remains on contact isolation for covid 19 +. Proper PPE strictly Observed. kept clean and comfortable. Will continue to monitor.
[2019-10-19 07:39] LABS: CREATININE 1.2 mg/dL (0.6-1.3); MAGNESIUM 1.9 mg/dL (1.8-2.4); PHOSPHOROUS 4.1 mg/dL (2.5-4.9)
[2019-10-19] MEDS ORDERED: PRED20TA PO (07:50)
[2019-10-19] MEDS: DEXAMETHASONE SOD PHOSPHATE 4 MG INJ IV SCH (08:17)
[2019-10-19] MEDS: ENOXAPARIN SODIUM 40 MG/0.4 ML DISP.SYRIN SQ SCH (08:17)
[2019-10-19 09:19] VITALS: BP 137/86
[2019-10-19 10:14] LABS: EOSINOPHILS % (MANUAL) 2 % (0-8); LYMPHOCYTES % (MANUAL) 29 % (20-40); MONOCYTES % (MANUAL) 15 % (2-10); NEUTROPHILS % (MANUAL) 54 % (42-75)
--- NOTE | 2019-10-19 14:30 | NUR ---
Patient is awake, alert and verbally responsive. No signs of distress noted. On Room Air saturating 96%. Afebrile. No complain of chest pain or any discomfort. Patient with Discharge Order to Home, All discharge Instruction and prescription given to patient and verbalized understanding. Removed IV site and wrist band. All Belongings was signed and sent with patient. patient was picked up by His brother via Private car in stable condition.
== END 2019-10-19 14:30 | disposition home or self-care (01) | DRG 720 ==
LOC: ER 21:27 → TELE3 23:28 → MEDSURG3 10-14 11:00
PROVIDERS: ADMIT Hospitalist; ATTEND Family Medicine
PROC: 30233L1 Transfusion of Nonautologous Fresh Plasma into Peripheral Vein, Percutaneous Approach (ICD-10-PCS; principal; 2019-10-15)
DX: A41.89 Other specified sepsis (principal); U07.1 COVID-19; J12.89 Other viral pneumonia; N17.0 Acute kidney failure with tubular necrosis; E44.0 Moderate protein-calorie malnutrition; E87.6 Hypokalemia; Z68.31 Body mass index [BMI] 31.0-31.9, adult; E66.9 Obesity, unspecified; J96.01 Acute respiratory failure with hypoxia; D64.9 Anemia, unspecified; E83.42 Hypomagnesemia; I10 Essential (primary) hypertension; K40.90 Unilateral inguinal hernia, without obstruction or gangrene, not specified as recurrent; R65.20 Severe sepsis without septic shock; R73.03 Prediabetes; E88.09 Other disorders of plasma-protein metabolism, not elsewhere classified; R31.9 Hematuria, unspecified; D47.3 Essential (hemorrhagic) thrombocythemia
CPT/HCPCS: 36415; 70030-TC; 71045; 83605; 83615; 83690; 83735; 84100; 84443; 85025; 85610; 85730; 86140; 86480; 86803; 86850; 86900; 86901; 87040; 87070; 87086; 87806; 93005; A4663; G0378; J0456; J0696; J1100; J1650; J2270; J3475; J3480; J3535; J7040; J7050; J7060; U0003-CS